=== PATIENT | male | born 1980 | race Caucasian/White ===

== ENCOUNTER 2016-08-05 10:06 | Outpatient (CLI) | payer OTHER ==
--- NOTE | 2016-08-05 11:01 | DIAGNOSTIC IMAGING REPORT ---
PROCEDURE: XR CHEST 2 VIEW INDICATION: CHRONIC COUGH TECHNIQUE: PA and lateral views. COMPARISON: None. FINDINGS: Lungs are clear. Heart and mediastinum are normal. Thorax is normal. IMPRESSION: 1. Negative chest.
== END 2016-08-05 23:00 ==
LOC: XR SRH 10:06
DX: R05 Cough (principal); Z87.891 Personal history of nicotine dependence